=== PATIENT | female | born 1970 | race Caucasian/White ===

== ENCOUNTER 2016-12-04 10:26 | Day surgery (SDC) | payer BC ==
[2016-12-03 12:56] LABS: HEMATOCRIT 36.9 % (36.0-48.0); HEMOGLOBIN 12.1 g/dL (12.0-16.0)
--- NOTE | ~2016-12-04 | OP ---
Record Of Operation [facility] [address] [place]. [address] NAME: STEPHANIE KNIGHT : 66 STATUS : [facility]#: [id number] AGE: 46 ADM/REG DATE : 12/04/16 MR#: [id number] REPORT SERV DATE: 12/04/16 DICTATED BY: Renata CARPENTER DATE: 12/04/16 REPORT STATUS : Draft TRANSCRIBED BY: CARLOS DATE: 12/04/16 DATE OF PROCEDURE: PREOPERATIVE DIAGNOSES: 1. Basal cell carcinoma of the right upper nose. 2. Defect of the right upper nose secondary to Mohs micrographic surgical excision of basal cell carcinoma. POSTOPERATIVE DIAGNOSES: 1. Basal cell carcinoma of the right upper nose. 2. Defect of the right upper nose secondary to Mohs micrographic surgical excision of basal cell carcinoma. NAME OF OPERATION: 1. Surgical excisional preparation of right upper nose defect. 2. Reconstruction of right upper nose defect with rotation flap closure. FINDINGS: 1.2 cm tall by 9 mm wide defect of the right upper nose with beveled edges; after removal of beveled edges, defect was 10 mm wide. 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 This has resulted in a 1.2 cm tall by a 9 mm wide defect in the right upper nose near the dorsum. The pros and cons, alternatives, benefits, risks, limitations, and complications of reconstruction of the anticipated defect was discussed at a separate consultation prior to the Mohs surgery in my office. We discussed the risk of recurrence of tumor, scarring, infection, distortion of the nose, imponderables. She understands, wishes to proceed. Proper consent obtained. No guarantees expressed. DESCRIPTION OF PROCEDURE: She was taken into the operating room and given general oral endotracheal anesthesia in the supine position. The dressing on her nose was removed and the entire face was prepped with Hibiclens and saline followed by isopropyl alcohol. None of these solutions got in her eyes. The nostrils were both prepped with the same solutions using sterile Q-tips. Sterile drapes were applied. The defect of the right upper nose measured as stated above. The beveled edges were marked out for surgical excisionally preparation to create proper wound edges for healing. The nose was injected with 1% Xylocaine with 1:100,000 epinephrine and 0.5% Marcaine with 1:200,000 epinephrine. 7 minutes elapsed for vasoconstriction. The #15 blade was used to circumferentially excise the beveled edges of the defect. This tissue was discarded. The resulting defect was 10 mm wide and 1.2 cm tall. Flaps were developed on either side of the nose, measuring 3 cm tall x 2.5 cm wide on the left side and 3 cm long and 1.5 cm wide on the right. This was done with a [employer] needle tip cautery for hemostasis and flap elevation just above the level of the perichondrium and periosteum of the nasal skeleton. These flaps were then rotated on themselves to close the defect with Record Of Operation [address] [place]. [address] NAME: STEPHANIE KNIGHT : 66 STATUS : [facility]#: [id number] AGE: 46 ADM/REG DATE : 12/04/16 MR#: [id number] REPORT SERV DATE: 12/04/16 DICTATED BY: Renata CARPENTER DATE: 12/04/16 REPORT STATUS : Draft TRANSCRIBED BY: CARLOS DATE: 12/04/16 5-0 Vicryl deep. 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 The wound edges were cleansed with hydrogen peroxide and dried. The edges coapted perfectly. The skin edges were treated with Dermabond. Mastisol and paper tape were applied in an antitension fashion. She was awakened and extubated and taken to the recovery room in good condition having tolerated the procedure well. HOME GOING INSTRUCTIONS: Included keeping the tape dry and intact. Recheck in the office in 13 days. She is to keep the face still. Prescriptions were given for cephalexin 500 mg #20, 1 p.o. b.i.d.; generic Zofran 8 mg ODT #6 one dissolved orally q.6 hours p.r.n. nausea or vomiting; hydrocodone 7.5 mg/325; APAP #12 one p.o. q.4-6 hours p.r.n. pain. BENJAMIN/CARLOS Renata Carpenter M.D. / [id number]
[~2016-12-04 10:26] MED LIST: *DENIES
== END 2016-12-04 18:58 | disposition home or self-care (01) ==
LOC: SDC 10:26
PROVIDERS: Specialist
PROC: 0HX1XZZ Transfer Face Skin, External Approach (ICD-10-PCS; principal; 2016-12-04 12:45)
DX: M95.0 Acquired deformity of nose (principal); Z88.0 Allergy status to penicillin
CPT/HCPCS: 84703; 85014; 85018; A9270-GY; J0690; J2250; J2405; J2710; J3010